=== PATIENT | female | born 1970 | race Two or more races ===

== ENCOUNTER → 2024-09-25 | Outpatient (BNVA) | payer MEDICAID, SELFPAY | END | disposition home or self-care (01) | PROVIDERS: PCP Nurse Practitioner Family; Referring Provider Nurse Practitioner Family; Visit Provider Nurse Practitioner Family | DX: E78.5 Hyperlipidemia, unspecified (principal); Z12.11 Encounter for screening for malignant neoplasm of colon; Z12.31 Encounter for screening mammogram for malignant neoplasm of breast; Z76.89 Persons encountering health services in other specified circumstances; R73.03 Prediabetes; Z23 Encounter for immunization; Z11.3 Encounter for screening for infections with a predominantly sexual mode of transmission; E66.01 Morbid (severe) obesity due to excess calories; Z68.41 Body mass index [BMI] 40.0-44.9, adult; L65.9 Nonscarring hair loss, unspecified; M25.50 Pain in unspecified joint; R10.2 Pelvic and perineal pain; Z78.0 Asymptomatic menopausal state; M25.531 Pain in right wrist; M25.532 Pain in left wrist | CPT/HCPCS: 90471; 90686; 99215 ==

== ENCOUNTER → 2024-10-01 | Outpatient (BNVA) | payer MEDICAID, SELFPAY | END | disposition home or self-care (01) | PROVIDERS: PCP Nurse Practitioner Family; Referring Provider Nurse Practitioner Family; Visit Provider Nurse Practitioner Family | DX: E78.5 Hyperlipidemia, unspecified (principal); R73.03 Prediabetes; Z78.0 Asymptomatic menopausal state; Z00.01 Encounter for general adult medical examination with abnormal findings; E66.01 Morbid (severe) obesity due to excess calories; Z68.41 Body mass index [BMI] 40.0-44.9, adult; R10.2 Pelvic and perineal pain; M25.50 Pain in unspecified joint; M25.531 Pain in right wrist; M25.532 Pain in left wrist; R39.14 Feeling of incomplete bladder emptying | CPT/HCPCS: 99214 ==

== ENCOUNTER → 2024-10-02 | Outpatient (CLI) | payer MEDICAID, SELFPAY ==
--- NOTE | 2024-10-02 | XR_ITS ---
Examination: Bilateral wrists 4 views Technique one AP lateral right and left wrist total 4 views Exam date and time: October 02, 2024 1331 hours INDICATIONS: Bilateral wrist pain beginning 6 months ago. FINDINGS: Moderate osteopenia No fracture or dislocation involving either wrist Bilateral early osteoarthritis first carpometacarpal joints IMPRESSION: Bilateral early osteoarthritis first carpometacarpal joints
== END | disposition home or self-care (01) ==
PROVIDERS: Referring Provider Nurse Practitioner Family; Visit Provider Nurse Practitioner Family
DX: M19.032 Primary osteoarthritis, left wrist (principal); M19.031 Primary osteoarthritis, right wrist
CPT/HCPCS: 73100

== ENCOUNTER → 2024-10-06 | Outpatient (BNVA) | payer MEDICAID, SELFPAY | END | disposition home or self-care (01) | PROVIDERS: PCP Nurse Practitioner Family; Referring Provider Nurse Practitioner Family; Visit Provider Nurse Practitioner Family | DX: Z12.4 Encounter for screening for malignant neoplasm of cervix (principal); Z78.0 Asymptomatic menopausal state | CPT/HCPCS: 81025; 99215; Q0091 ==

== ENCOUNTER → 2024-10-20 | Outpatient (BNVA) | payer MEDICAID, SELFPAY | END | disposition home or self-care (01) | PROVIDERS: PCP Nurse Practitioner Family; Referring Provider Nurse Practitioner Family; Visit Provider Nurse Practitioner Family | DX: Z71.2 Person consulting for explanation of examination or test findings (principal); Z71.3 Dietary counseling and surveillance; R73.03 Prediabetes; E66.01 Morbid (severe) obesity due to excess calories; Z68.41 Body mass index [BMI] 40.0-44.9, adult | CPT/HCPCS: 99213 ==

== ENCOUNTER → 2024-11-18 | Outpatient (BNVA) | payer MEDICAID, SELFPAY | END | disposition home or self-care (01) | PROVIDERS: PCP Nurse Practitioner Family; Referring Provider Nurse Practitioner Family; Visit Provider Nurse Practitioner Family | DX: E66.01 Morbid (severe) obesity due to excess calories (principal); Z68.41 Body mass index [BMI] 40.0-44.9, adult; R73.03 Prediabetes; Z71.3 Dietary counseling and surveillance | CPT/HCPCS: 99213 ==

== ENCOUNTER → 2024-12-18 | Outpatient (BNVA) | payer MEDICAID, SELFPAY | END | disposition home or self-care (01) | PROVIDERS: PCP Nurse Practitioner Family; Referring Provider Nurse Practitioner Family; Visit Provider Nurse Practitioner Family | DX: E66.01 Morbid (severe) obesity due to excess calories (principal); Z68.41 Body mass index [BMI] 40.0-44.9, adult; R73.03 Prediabetes; Z71.3 Dietary counseling and surveillance | CPT/HCPCS: 99213 ==

== ENCOUNTER → 2024-12-30 | Outpatient (BNVA) | payer MEDICAID, SELFPAY | END | disposition home or self-care (01) | PROVIDERS: PCP Nurse Practitioner Family; Referring Provider Nurse Practitioner Family; Visit Provider Nurse Practitioner Family | DX: B02.9 Zoster without complications (principal); E78.5 Hyperlipidemia, unspecified; R73.03 Prediabetes; Z01.83 Encounter for blood typing | CPT/HCPCS: 99214 ==

== ENCOUNTER → 2025-01-02 | Outpatient (BNVA) | payer MEDICAID, SELFPAY | END | disposition home or self-care (01) | PROVIDERS: PCP Nurse Practitioner Family; Referring Provider Nurse Practitioner Family; Visit Provider Nurse Practitioner Family | DX: B02.9 Zoster without complications (principal) | CPT/HCPCS: 99214 ==

== ENCOUNTER → 2025-01-16 | Outpatient (BNVA) | payer MEDICAID, SELFPAY | END | disposition home or self-care (01) | PROVIDERS: PCP Nurse Practitioner Family; Referring Provider Nurse Practitioner Family; Visit Provider Nurse Practitioner Family | DX: Z71.2 Person consulting for explanation of examination or test findings (principal); B02.9 Zoster without complications; E78.5 Hyperlipidemia, unspecified | CPT/HCPCS: 99213 ==